=== PATIENT | female | born 1980 | race Caucasian/White ===

== ENCOUNTER → 2021-07-31 | Outpatient (CLI) | payer BC ==
[2021-08-02 15:08] LABS: HPV 16 Negative (Negative); HPV 18 Negative (Negative); HPV OTHER HR TYPES Negative (Negative)
== END ==
LOC: LAB SHORT 13:20 → LAB 13:20
PROVIDERS: Family Medicine
DX: Z01.419 Encounter for gynecological examination (general) (routine) without abnormal findings (principal)
CPT/HCPCS: 87624; G0145

== ENCOUNTER → 2024-01-06 | Outpatient (CLI) | payer BC ==
[2024-01-13 15:41] LABS: HPV HIGH RISK BY TMA Not Detected; HPV SOURCE Cervical
== END ==
LOC: LAB 18:03 → LAB SHORT 18:03
PROVIDERS: Family Medicine
DX: Z01.419 Encounter for gynecological examination (general) (routine) without abnormal findings (principal)
CPT/HCPCS: 87624; G0123

== ENCOUNTER → 2024-03-19 | Outpatient (CLI) | payer BC ==
[2024-03-22 23:07] LABS: CALPROTECTIN,FECAL <5 ug/g (<=49)
[2024-03-22 23:08] LABS: PANCREATIC ELASTASE,FECAL 387 ug/g (>=100)
== END | disposition home or self-care (01) ==
LOC: LAB 11:29 → LAB SHORT 11:29
PROVIDERS: Family Medicine
DX: K52.9 Noninfective gastroenteritis and colitis, unspecified (principal)
CPT/HCPCS: 82653; 83993